=== PATIENT | male | born 1950 | race Caucasian/White ===

== ENCOUNTER 2017-09-07 19:26 | Emergency (ER) | payer MEDICARE ==
--- NOTE | 2017-09-07 19:49 | ER Document Report ---
ED General - General Mode of Arrival: Medic Information source: Patient <JENNIFER ETIENNE - Last Filed: 09/07/17 21:31> <CODEY SCHROEDER - Last Filed: 09/08/17 03:30> - General Stated Complaint: ABDOMINAL PAIN Time Seen by Provider: 09/07/17 19:37 Notes: Patient is a 66 year old male with a history of arachnoid cyst, trigeminal neuralgia, CAD, ND, cardiac stents, hyperlipidemia, and a diverticular bleed presents to the emergency department complaining of blood in his stool onset around 1700 today. Patient describes the blood in his stool as bright red. Patient states that he felt good before he had a bowel movement after which he began to feel dizzy. Patient states his symptoms are similar to his previous diverticular bleed. At bedside patient states he feels better. Patient is currently taking Plavix and Lipitor. (JENNIFER ETIENNE) This 66-year-old male patient had sudden onset about 5 PM today of large-volume bright red blood per rectum. He states he thought about driving himself to the emergency room but became dizzy. He had a similar occurrence on 10/25/2013 requiring 2 units of packed cells transfusion, was transferred to [facility] where he was observed and diagnosed with diverticular bleed. No other interventions. At some point after that while in [place] he had a colonoscopy showing diverticulosis. EMS reports the blood pressure was 74/40 and he received 1100 mL's of normal saline bolus, and a dose of TXA. The patient lives in [place], he was here visiting in September 2013 when this occurred , and is here visiting again at this time. (CODEY SCHROEDER) - Related Data Allergies/Adverse Reactions: No Known Allergies Allergy (Unverified 10/25/13 09:23) Past Medical History - General Information source: Patient - Social History Smoking Status: Never Smoker Cigarette use (# per day): No Chew tobacco use (# tins/day): No Smoking Education Provided: No Frequency of alcohol use: Rare Drug Abuse: None Family History: Other - denies hx of CA - Past Medical History Cardiac Medical History: Reports: Hx Heart Attack, Hx Hypercholesterolemia Neurological Medical History: Reports: Other - Trigeminal neuralgia GI Medical History: Reports: Other Past Surgical History: Reports: Hx Cardiac Catheterization <JENNIFER ETIENNE - Last Filed: 09/07/17 21:31> - Social History Occupation: Retired Lives with: Spouse/Significant other Family History: Reviewed & Not Pertinent <CODEY SCHROEDER - Last Filed: 09/08/17 03:30> Review of Systems - Review of Systems Constitutional: No symptoms reported EENT: No symptoms reported Cardiovascular: See HPI, Dizziness Respiratory: No symptoms reported Gastrointestinal: See HPI Genitourinary: No symptoms reported Male Genitourinary: No symptoms reported Musculoskeletal: No symptoms reported Skin: No symptoms reported Hematologic/Lymphatic: No symptoms reported Neurological/Psychological: No symptoms reported -: Yes All other systems reviewed and negative <LOWELLJENNIFER FAUST - Last Filed: 09/07/17 21:31> Physical Exam - General General appearance: Appears well, Alert In distress: None - HEENT Head: Normocephalic, Atraumatic Eyes: Normal Conjunctiva: Normal Extraocular movements intact: Yes Pupils: PERRL - Respiratory Respiratory status: No respiratory distress Chest status: Nontender Breath sounds: Normal Chest palpation: Normal - Cardiovascular Rhythm: Regular Heart sounds: Normal auscultation - Abdominal Inspection: Normal Distension: No distension Bowel sounds: Normal Tenderness: Nontender Organomegaly: No organomegaly - Rectal Stool: Bloody - Gross amounts of bright red blood on the back of the pants and BLE. - Back Back: Normal - Extremities General upper extremity: Normal ROM General lower extremity: Normal ROM - Neurological Neuro grossly intact: Yes Cognition: Normal Orientation: AAOx4 [place] Coma Scale Eye Opening: Spontaneous [place] Coma Scale Verbal: Oriented [place] Coma Scale Motor: Obeys Commands [place] Coma Scale Total: 15 Speech: Normal - Psychological Associated symptoms: Normal affect, Normal mood - Skin Skin Temperature: Warm Skin Moisture: Dry Skin Color: Normal <JENNIFER ETIENNE - Last Filed: 09/07/17 21:31> - Vital signs Vitals: Temp 97.9 F 09/07/17 19:30 Course - Laboratory Result Diagrams: 09/07/17 19:40 09/07/17 19:40 <JENNIFER ETIENNE - Last Filed: 09/07/17 21:31> - Laboratory Result Diagrams: 09/07/17 19:40 09/07/17 19:40 - Diagnostic Test Radiology reviewed: Image reviewed, Reports reviewed - Chest x-ray is unremarkable - EKG Interpretation by Me EKG shows normal: Sinus rhythm, [place], Intervals, ST-T Waves. abnormal: QRS Complexes - Old inferior wall ND Rate: Normal - 67 Rhythm: NSR [place]/QRS: Left axis deviation - Transfer of Care Care transferred to following provider: Dr. Szymanski <CODEY SCHROEDER - Last Filed: 09/08/17 03:30> - Re-evaluation Re-evalutation: 09/07/17 22:[address] Cagle who is the hospitalist at [facility], we will except the patient. Unfortunately they do not have beds and do not expect to have beds anytime in the next 24-48 hours. 09/07/17 23:[address] Brandy Steinberg who has accepted at [facility], however there are no beds at this time to the patient is on a waiting list. 09/07/17 23:31 I explained at length the current situation with the patient and his spouse. We do not have gastroenterology back up here so he is not a candidate to be admitted at this facility. I explained to them that having to wait in the emergency room for a bed to open up at another facility is a common problem and that we are well equipped to provide the needed care at this time until a bed does become available, or if he becomes unstable then [facility] has agreed to upgrade his status and make him an emergent transfer. The patient keeps talking about going home and driving to [place] to see his doctor , but the patient does seem to be somewhat demented. 09/08/17 02:20 The patient is resting quite comfortably. His blood pressure is 113/72 with pulse of 65. This is where his blood pressure and pulse has been for at least the last 6 hours. His spouse has gone home at this time. I will have the nursing staff contact her to update her. I was just informed that transport will be here for him about 3:45 AM this morning to transport him to [facility]. 09/08/17 03:15 Transport should be here in about 30 minutes, the patient's blood pressure is 126/79 with pulse 65, he is resting comfortably. (CODEY SCHROEDER) - Vital Signs Vital signs: Temp Pulse Resp BP Pulse Ox 97.9 F 70 16 127/83 H 99 09/08/17 02:04 09/08/17 02:04 09/08/17 02:04 09/08/17 02:04 09/08/17 02:04 - Laboratory Laboratory results interpreted by me: 09/07/17 09/07/17 09/07/17 19:40 19:40 19:40 RBC 3.72 L Hgb 11.7 L Hct 33.9 L Seg Neutrophils % 82.5 H Lymphocytes % 7.4 L BUN 22 H Glucose 188 H Lactic Acid Calcium 8.1 L Total Protein 5.6 L Albumin 3.3 L Urine Glucose (UA) Urine Ketones Urine Blood Crossmatch See Detail 09/07/17 09/08/17 20:02 01:20 RBC Hgb Hct Seg Neutrophils % Lymphocytes % BUN Glucose Lactic Acid 3.2 H Calcium Total Protein Albumin Urine Glucose (UA) 50 H Urine Ketones TRACE H Urine Blood SMALL H Crossmatch - Transfer of Care Notes: 09/08/17 03:16 Patient is stable at this time, transport should be here in about 30 minutes. Patient's history and physical and laboratory work was reviewed with Dr. Szymanski. (CODEY SCHROEDER) Critical Care Note - Critical Care Note Total time excluding time spent on procedures (mins): 35 <CODEY SCHROEDER - Last Filed: 09/08/17 03:30> Discharge <JENNIFER ETIENNE - Last Filed: 09/07/17 21:31> <CODEY SCHROEDER - Last Filed: 09/08/17 03:30> - Discharge Clinical Impression: Lower GI bleed Hypotension Qualifiers: Hypotension type: unspecified hypotension type Qualified Code(s): I95.9 - Hypotension, unspecified Condition: Good Disposition: [facility] Scribe Attestation: 09/07/17 20:11 I personally performed the services described in the documentation, reviewed and edited the documentation which was dictated to the scribe in my presence, and it accurately records my words and actions. (CODEY SCHROEDER) Scribe Documentation - Scribe Written by Scribe:: Angelica Pierre, 09/07/2017 20:28 acting as scribe for :: Pio <JENNIFER ETIENNE - Last Filed: 09/07/17 21:31>
[2017-09-07 19:55] LABS: ABSOLUTE EOSINOPHILS # (AUTO) 0.1 10^3/uL (0.0-0.6); ABSOLUTE LYMPHOCYTES (AUTO) 0.7 10^3/uL (0.5-4.7); ABSOLUTE MONOCYTES (AUTO) 0.9 10^3/uL (0.1-1.4); ABSOLUTE NEUT (AUTO) 8.2 10^3/uL (1.7-8.2); BASOPHILS % (AUTO) 0.5 % (0-2); EOSINOPHILS % (AUTO) 0.8 % (0-6); HEMATOCRIT 33.9 % (37.9-51.0); HEMOGLOBIN 11.7 g/dL (13.5-17.0); LYMPHOCYTES % (AUTO) 7.4 % (13-45); MEAN CORPUSCULAR HEMOGLOBIN 31.6 pg (27.0-33.4); MEAN CORPUSCULAR HGB CONC 34.6 g/dL (32.0-36.0); MEAN CORPUSCULAR VOLUME 91 fl (80-97); MONOCYTES % (AUTO) 8.8 % (3-13); PLATELET COUNT 241 10^3/uL (150-450); RED BLOOD COUNT 3.72 10^6/uL (4.35-5.55); SEGMENTED NEUTROPHILS % (AUTO) 82.5 % (42-78); TOTAL CELLS COUNTED % (AUTO) 100 %; WHITE BLOOD COUNT 9.9 10^3/uL (4.0-10.5)
[2017-09-07 19:59] LABS: INTERNATIONAL RATION (INR) 1.04; PARTIAL THROMBOPLASTIN TIME 23.9 SEC (23.5-35.8); PROTHROMBIN TIME 14.1 SEC (11.4-15.4)
[2017-09-07 20:21] LABS: ALANINE AMINOTRANSFERASE 27 U/L (21-72); ALBUMIN 3.3 g/dL (3.5-5.0); ALKALINE PHOSPHATASE 74 U/L (38-126); ANION GAP 10 (5-19); ASPARTATE AMINO TRANSFERASE 21 U/L (17-59); BILIRUBIN,DIRECT 0.3 mg/dL (0.0-0.4); BILIRUBIN,TOTAL 0.4 mg/dL (0.2-1.3); BLOOD UREA NITROGEN 22 mg/dL (7-20); CALCIUM 8.1 mg/dL (8.4-10.2); CARBON DIOXIDE 24 mmol/L (22-30); CHLORIDE 107 mmol/L (98-107); GLUCOSE 188 mg/dL (75-110); LIPASE 55.2 U/L (23-300); POTASSIUM 4.7 mmol/L (3.6-5.0); SODIUM 141.2 mmol/L (137-145); TOTAL PROTEIN 5.6 g/dL (6.3-8.2)
[2017-09-07] MEDS ORDERED: NORMAL SALINE 1000 ML 1,000 ML IV ONE (20:24)
[2017-09-07] MEDS ORDERED: NORMAL SALINE 250 ML IV PRN (20:46)
--- NOTE | 2017-09-07 21:02 | RADIOLOGY REPORT (SQ) ---
EXAM DESCRIPTION: CHEST SINGLE VIEW COMPLETED DATE/TIME: 09/07/2017 8:47 pm REASON FOR STUDY: Lower GI bleed COMPARISON: None. EXAM PARAMETERS: NUMBER OF VIEWS: One view. TECHNIQUE: Single frontal radiographic view of the chest acquired. RADIATION DOSE: NA LIMITATIONS: None. FINDINGS: LUNGS AND PLEURA: No opacities, masses or pneumothorax. No pleural effusion. MEDIASTINUM AND HILAR STRUCTURES: No masses. Contour normal. HEART AND VASCULAR STRUCTURES: Heart normal in size. Normal vasculature. BONES: No acute findings. HARDWARE: None in the chest. OTHER: No other significant finding. IMPRESSION: NO ACUTE RADIOGRAPHIC FINDING IN THE CHEST. TECHNICAL DOCUMENTATION: JOB ID: [id number] [employer]- All Rights Reserved Reading location - IP/workstation name: [email or web address]
[2017-09-08] MEDS ORDERED: CARBAMAZEPINE 200 MG TABLET PO SCH (00:45)
[2017-09-08] MEDS ORDERED: ATORVASTATIN CALCIUM 80 MG TABLET PO SCH (00:45)
[2017-09-08] MEDS ORDERED: ATORVASTATIN CALCIUM 80 MG TABLET PO ONE (01:30)
[2017-09-08] MEDS ORDERED: CARBAMAZEPINE 200 MG TABLET PO ONE (01:30)
[2017-09-08 03:16] LABS: APPEARANCE,URINE CLEAR; BILIRUBIN,URINE NEGATIVE (NEGATIVE); COLOR,URINE YELLOW; GLUCOSE, URINE 50 mg/dL (NEGATIVE); KETONES,URINE TRACE mg/dL (NEGATIVE); LEUKOCYTE ESTERASE,URINE NEGATIVE (NEGATIVE); NITRITE,URINE NEGATIVE (NEGATIVE); PROTEIN,URINE NEGATIVE (NEGATIVE); URINE SPECIFIC GRAVITY 1.028; UROBILINOGEN,URINE NEGATIVE mg/dL (<2.0)
[2017-09-08 03:40] VITALS: BP 119/82
--- NOTE | 2017-09-08 07:57 | EKG REPORT ---
SEVERITY:- ABNORMAL ECG - SINUS RHYTHM LAD, CONSIDER LAFB OR INFERIOR INFARCT CONSIDER ANTEROSEPTAL INFARCT : Confirmed by: Saqib Shen MD 08-Sep-2017 07:56:30
== END 2017-09-08 03:35 | disposition short-term general hospital (02) ==
LOC: ER 19:26
DX: K92.2 Gastrointestinal hemorrhage, unspecified (principal); I95.9 Hypotension, unspecified; R10.9 Unspecified abdominal pain; E78.00 Pure hypercholesterolemia, unspecified; I25.2 Old myocardial infarction
CPT/HCPCS: 93005; 99291; 96360; 96361; 86900; 86901; 36415; 36430; 86850; 83605; 83690; 85025; 85610; 85730; 80053; 81001; 86920; 71045; 93010; P9016; A9270 ×2; J7030; J7050